=== PATIENT | male | born 1950 | race Caucasian/White ===

== ENCOUNTER → 2019-03-16 | Day surgery (SDC) | payer MEDICARE, OTHER ==
--- NOTE | 2019-03-15 12:56 | Pre Op History & Physical ---
DATE OF SURGERY: March 16, 2019. CHIEF COMPLAINT: Lesion in the right temporal area and left hairline. HISTORY OF PRESENT ILLNESS: This 68 years old male was noted to have lesion in the right temporal area and left hairline for a number of months. The lesion is increasing in size with irritation. The patient has a history of sun damage. He is being treated with topical medication with no improvement. REVIEW OF SYSTEMS: Showed no recent cardiovascular, respiratory, or GI problem. PAST MEDICAL HISTORY: The patient had type 2 diabetes, hypertension, and lumbar spine problem. PAST SURGICAL HISTORY: The patient has previous knee surgery, rotator cuff surgery, hernia repair, reflux surgery and tonsillectomy. ALLERGIES: HE HAS NO KNOWN ALLERGIES TO MEDICATIONS. MEDICATIONS: As per medicine list. SOCIAL HISTORY: He stopped smoking in 1998. He is a social drinker. FAMILY HISTORY: Noncontributory. PHYSICAL EXAMINATION: VITAL SIGNS: On examination, the patient's vital signs were within normal limits. HEENT: Ear exam show normal tympanic membranes bilaterally. Nasal exam showed hypertrophy of the inferior turbinates. MUSCULOSKELETAL: The patient has a lesion in the right temporal area about 2 x 1 cm and left hairline about 1 x 1 cm scaly in appearance, raised. Oropharynx and oral cavity show no obvious abnormality. NECK: No lymph node or thyroid palpable. CHEST: Clear. No abnormality. CARDIOVASCULAR: Showed S1 and S2. No murmur noted. PRINCIPAL ARCHITECT: Showed cranial nerve 2-12 were within normal limits. ASSESSMENT AND PLAN: Mr. Petersen has had a lesion in the right temporal and left hairline which has been irritating to the patient and increasing in size. The suggestion is excision of lesion with frozen section control and appropriate closure. The complication of procedure includes, but not limited to bleeding, infection, wound breakdown, poor cosmetic result, persistent recurrence of the lesion, facial nerve injury, hair loss. Alternative will be continued observation, excision of lesion in the office setting. The patient has elected to undergo surgical procedure. MD MYNOR Ley/TAMEKA /[id number]
[~2019-03-16] MED LIST: ASPIR 8181 MG PO; CRESTOR10 MG PO; DEXAMETHASONE SOD PHOS INJ 4 MG/ML VIAL ONE; FENTANYL CITRATE/PF 100MCG/2 ML INJ ONE; IBUPROFEN 800MG/ 250ML 250 ML IV ONE; LIDOCAINE 1% W/EPINEPHRINE 20 ML VIAL ONE; LIDOCAINE HCL 2% LOCAL INJ 5 ML SDV VIAL INJ ONE; LOSARTAN POTAS100 MG PO; METFORMIN HCL1000 MG PO; MIDAZOLAM HCL 2 MG/2 ML VIAL ONE; MULTI-VITAMIN1 EACH PO; NEOSTIGMINE 1 MG/ML 10ML VIAL ONE; ONDANSETRON HCL INJ 2MG/ML 2ML 2 MG/ML VIAL ONE; PROPOFOL IV EMULSION 10 MG/ML 20 ML VIAL ONE; SEVOFLURANE INHAL SOLN 250 ML PEN BTL ONE
--- OUTSIDE RECORDS SUMMARY | 2019-03-16 07:11 | XMS REPORT ---
Author [facility] Address Unknown Phone Unavailable Care Team Providers Care Clinical Director Name Role Phone Braxton Whitmore Unavailable Unavailable Ellis Carvalho Unavailable Unavailable Casey Leach Unavailable Unavailable [place], TERRESTRIAL ECOLOGIST-BC Maranda Unavailable Unavailable Kovacev, Karlos Unavailable Unavailable Problems This patient has no known problems. Allergies, Adverse Reactions, Alerts This patient has no known allergies or adverse reactions. Medications This patient has no known medications. Results Test Description Test Time Test Comments Text Results Atomic Results Result Comments Iac Wo Con W/ Mpr 2019-02-05 16:36:00 [place] [address] [facility] REPORT Name: ORION PETERSEN Acct Number: [id number] :1950 Age:68 Sex:M Ord Phys: Braxton Whitmore MD Unit Number: [id number] [facility] Dr: Status: REG REF RAD Exam Date: 02/05/19 EXAM DESCRIPTION: CT - Iac Wo Con W/ Mpr - 02/05/2019 3:25 pm CLINICAL HISTORY: H90.3 TECHNIQUE: Axial 1 millimeter thick images were obtained through the temporal bones. Sagittal and coronal reformatted images were generated and reviewed. All CT scans are performed using dose optimization technique as appropriate and may include automated exposure control or mA/KV adjustment according to patient size. FINDINGS: Left side mastoid air cells and middle ear are clear no tympanic membrane or ossicle abnormality. Vestibule, cochlear and semi circular canals are normal. No internal auditory canal or external auditory canal abnormality. Fluid and mucosal thickening changes partially opacify the inferior right-side mastoid air cells. Vestibule, cochlear and semicircular canals within normal limits. No abnormal sclerotic changes seen. No thickening or abnormality for right-sided tympanic membrane in the right-side ossicles are normal. Middle ear is fully aerated. Soft tissue lining of the external auditory canal is slightly more prominent than the left. This is a minimal differential. IMPRESSION: Fluid/mucosal thickening changes partially opacifying the right- side mastoid air cells. No right side abnormality seen to explain right- sided hearing loss. Soft tissues around the opening of the external auditory canal on the right is slightly more prominent. Significance is doubtful. Negative CT scan of the left-side IAC/temporal bone. Signed By: Jose Manuel Sharif MD Signed AT: 02/05/19 1637 Lumbar Spine 3 Views 2018-10-01 11:29:00 [place] [address] [facility] REPORT Name: ORION PETERSEN Acct Number: [id number] :1950 Age:67 Sex:M Ord Phys: Ellis Carvalho MD Unit Number: [id number] [facility] [address]: Status: REG REF RAD Exam Date: 10/01/18 EXAM DESCRIPTION: RAD - Lumbar Spine 3 Views - 10/01/2018 11:22 am CLINICAL HISTORY: M54.5 Radiculopathy COMPARISON: No comparisons FINDINGS: Vertebral body heights appear maintained. No compression fracture noted. Prominent degenerative changes present at L2-3 with vacuum disc degeneration. Disc thinning with endplate osteophytes are present throughout the lumbar spine. Facet hypertrophy is noted at L4-5 and L5-S1. IMPRESSION: Moderate multilevel degenerative spondylosis of the lumbar spine is present. Signed By: Antwan Granados MD Signed AT: 10/01/18 1129 DEXA, BONE DENSITY AXIAL SKELE 2018-07-30 00:00:00 [place] [address] [facility] REPORT Name: ORION PETERSEN Acct Number: [id number] :1950 Age:67 Sex:M Ord Phys: Ellis Carvalho MD Unit Number: [id number] [facility] [address]: Status: REG REF RAD Exam Date: 07/28/18 Indication: screening for osteoporosis; Clinical Information Provided by Patient: Is being treated for Osteoporosis Has 3 or more alcoholic drinks per day Has used the following medications: Vitamin D, Calcium Patient maximum height was 69.5 Drinks caffeinated beverages Bone Density: Exam date 07/28/2018 BMD Region (g/cm2) T- score Z- Score Classification AP Spine (L1-L4) 1.309 2.0 2.8 Normal Femoral Neck (Left) 0.891 -0.3 0.8 Normal Total Hip (Left) 1.147 0.8 1.3 Normal World Health Organization criteria for BMD imp ression classify patients as normal (T-score at or above -1.0), Osteopenia (T- score between -1.0 and -2.5), or Osteoporosis (T-score at or below -2.5 10- year Fracture Risk: FRAX not reported because: All T-scores for Spine Total, Hip Total, Femoral Neck at Or above -1.0. Treated for osteoporosis Impression: The patient has normal bone mass. The patient has risk factors, including: excessive alcohol use. Discussion: It is important to ask patients whether they are taking their medications and to encourage continued and appropriate compliance with their osteoporosis therapies to reduce fracture risk. It is also important to review their risk factors and encourage appropriate calcium and vitamin D intakes, exercise, fall prevention necessary, to reassess this patient s status. Follow-Up: Consider repeating this study in 2 years or sooner if there is some new clinical indication. Reported by: Dr. Watson on 07/28/2018 at 10:01:00 AM. Signed By: Stepan Watson MD Signed AT: 08/04/18 1418 Hemoglobin A1c/Hemoglobin.total in Blood 2018-05-25 12:48:00 Hemoglobin A1c/Hemoglobin.total in Blood (test chlu=6595-7) 6.5 % 4.2-6.3 Comprehensive metabolic wrnli1800-84-52 12:18:00* Test Item Value Reference Range Comments Serum or plasma sodium measurement (moles/volume) (test zohf=7768-1) 138 mmol/L 136-145 Potassium [Moles/volume] in Serum or Plasma (test bvsy=3400-5) 3.8 mmol/L 3.5-5.1 Chloride [Moles/volume] in Serum or Plasma (test zrvu=3626-7) 102 mmol/L 98-107 Carbon dioxide, total [Moles/volume] in Serum or Plasma (test fupc=0498-0) 30 mmol/L 21-32 Glucose [Mass/volume] in Serum or Plasma (test kqdp=7290-4) 109 mg/dL 74-106 Urea nitrogen [Mass/volume] in Serum or Plasma (test ramh=4325-6) 14 mg/dL 7-18 Creatinine [Mass/volume] in Serum or Plasma (test zmqf=8289-0) 0.80 mg/dL 0.55-1.3 Glomerular Filtration Rate (test code=GFR) > 90 =/>90 FOR CHRONIC KIDNEY DISEASE: GFR STAGE DESCRIPTION=/>90 STAGE 1 NORMAL--OR-- MINIMAL KIDNEY DAMAGE WITH NORMAL GFR 60-89 STAGE 2 MILD DECREASE IN GFR 30-59 STAGE 3 MODERATE DECREASE IN GFR 15-29 STAGE 4 SEVERE DECREASE IN GFR <15 STAGE 5 KIDNEY FAILURE The Glomerular Filtration Rate (GFR) has been calculated using the IDMS-Traceable MDRD Study Equation. Aspartate aminotransferase [Enzymatic activity/volume] in Serum or Plasma by With P-5 (test flvo=74929-2) 18 U/L 15-37 Alanine aminotransferase [Enzymatic activity/volume] in Serum or Plasma by With P-5'- (test lqyi=0732-6) 34 U/L 12-78 Alkaline phosphatase [Enzymatic activity/volume] in Serum or Plasma (test xjee=4023-5) 76 U/L 45-117 Bilirubin.total [Mass/volume] in Serum or Plasma (test yktr=1432-5) 0.5 mg/dL 0.2-1.0 Calcium [Mass/volume] in Serum or Plasma (test jqlo=85166-2) 9.3 mg/dL 8.5-10.1 Protein [Mass/volume] in Serum or Plasma (test ugzs=5936-9) 8.0 g/dL 6.4-8.2 Albumin [Mass/volume] in Serum or Plasma by Bromocresol purple (BCP) dye binding meth (test ergc=44202-1) 4.4 g/dL 3.4-5.0 Globulin (test code=GLOB) 3.6 g/dL 2.3-3.5 Albumin/Globulin Ratio (test code=A/G) 1.2 1.1-1.8 Lipid egdgamk6146-33-09 12:18:00* Test Item Value Reference Range Comments Cholesterol [Mass/volume] in Serum or Plasma (test urqk=3222-5) 110 mg/dL <200 Triglyceride [Mass/volume] in Serum or Plasma (test kluy=2865-3) 136 mg/dL <150 Cholesterol in HDL [Mass/volume] in Serum or Plasma (test xwbq=2702-6) 32 mg/dL 40-60 Serum or plasma cholesterol in LDL measurement by calculation (mass/volume) (test axiw=57797-3) 51 <130 This LDL is a calculated result; a more accurate analysis can be performed using the direct LDL methodology. Total cholesterol/cholesterol in HDL (percentile) (test kjgo=2844-0) 3.44 LIPID RISK RATIOS: 1/2 AVERAGE AVERAGE 2X AVERAGE 3X AVERAGE ------- MALE 3.43 4.97 9.55 23.39 FEMALE 3.27 4.44 7.05 11.04 Microalbumin [Mass/volume] in Boggy5054-88-02 12:16:00* Test Item Value Reference Range Comments Microalbumin [Mass/volume] in Urine (test prao=76779-6) 1.0 mg/dL < 1.9 Thoracic Spine Ap/Bul5312-77-81 12:46:00[place] [address] [facility] REPORT Name: ORION PETERSEN Acct Number: [id number] :1950 Age:67 Sex:M Ord Phys: Casey Leach MD Unit Number: [id number] [facility] [address]: Status: REG REF RAD Exam Date: 02/23/18 EXAM DESCRIPTION: RAD - Thoracic Spine Ap/Lat - 02/23/2018 11:36 am CLINICAL HISTORY: Back pain FINDINGS: No fracture is seen. No dislocation is noted Kyphosis involves the thoracic spine. The bones are osteoporotic. Moderate spondylosis involves the mid thoracic spine consisting of disc space narrowing and osteophytes. Signed By: Stepan Watson MD Signed AT: 02/23/18 1246 Miscellaneous Test Tab9844-50-89 14:44:00* Test Item Value Reference Range Comments Miscellaneous Test Lab (test code=MISC) SENT PSA FREE AND TOTAL 1 LG RED Specimen sent to Reference Laboratory. Results to follow. Scrotum Mrbjciywj7024-00-42 13:35:00[place] [address] [facility] REPORT Name: ORION PETERSEN Acct Number: [id number] :1950 Age:67 Sex:M Ord Phys: Maranda Guillen CDE Unit Number: [id number] [facility] [address]: Status: REG REF RAD Exam Date: 02/02/18 EXAM DESCRIPTION: US - Scrotum Testicles - 02/02/2018 1:07 pm CLINICAL HISTORY: Testicular pain COMPARISON: None FINDINGS: The right testicle measures 4.6 x 3.1 x 3.1 centimeters. The left testicle measures 5 x 3.1 x 3.2 centimeters. The echotexture of each testicle is homogeneous with normal appearing intratesticular blood flow bilaterally The epididymides are normal in size and blood flow. A large right hydrocele is seen IMPRESSION: Large right hydrocele Signed By: Stepan Watson MD Signed AT: 02/02/18 1335 53624--NCHF PATH LEVEL 29378-82-38 08:39:00 RUN DATE: 02/02/18 [facility] LAB*Abida tim* PAGE 1 RUN TIME: 838 Specimen Inqu iry PATIENT: ORION PETERSEN ACC T: [id number] LOC: OR U: [id number] AGE/SX: 67/M ROOM: RE01/30/18[facility] DR: Karlos Steve MD : 1950 BED: DIS: STATUS: [facility] TLOC: SP EC : [id number] RECD: 01/30/18 STATUS: [place] NUM: [id number] SUSANA: 01/30/18-1041 [facility] DR: Jamir Steve MD ENTERED: 01/30/184 SP TYPE: INPATIENT [facility] DR: ORDERED: [id number] CODES: COLON, NOS PROCEDURES: 06110 (01/30/18-1 424) TISSUES: COLON, NOS - RANDOM COLON BIOPSY CLINICAL HISTOR Y Pre-op Diagnosis: Colon cancer screening.Post-op Diagnosis: Divertic ulosis, hemorrhoid. DIAGNOSIS Random colon, biopsy: - No signific ant pathologic changes CPT 60263 GROSS DESCRIPTION The case is received in one part, labeled with the patient's name "Orion Petersen" and accession#[id number] 1 accompanied by a requisition slip labeled with the patient's name and the same accession number. The specimen is received in formalin, labeled "random colon bi opsy" and consists of afragment of harris tissue measuring 1 cm submitted entirely in a single cassette. (ASW) MICROSCOPIC DESCRIPTION Sections show fragments of benign colonic mucosa. The lamina propria is somewhat edematous.No significa nt acute inflammation is seen. No crypt abscesses or granulomas are seen. Noincr eased intraepithelial lymphocytes are seen. There is no evidence of malignancy.- Signed (signature on file) Renae John MD 0839 END OF REPORT Glucose blood olmjxussmhc8540-54-37 09:09:00* Test Item Value Reference Range Comments Glucose blood fingerstick (test yues=NPS9022) 88 mg/dL 65-120 Comprehensive metabolic ppbyc4233-41-88 14:54:00* Test Item Value Reference Range Comments Sodium level (test wavy=NOS9824) 138 meq/L 135-145 4.1 Chloride measurement (test ggvz=OEX7974) 105 meq/L 101-111 Bicarbonate (test code=CO2) 27 meq/L 21-31 Glucose measurement (test hnge=LGN2890) 104 mg/dL 65-120 ADA Clinical Practice Recommendation: <100 mg/dl=Normal Fasting Glucose BUN Bld-mCnc (test itxj=2536-7) 14 mg/dL 6-20 Creatinine measurement (test jynx=QBU3078) 0.78 mg/dL 0.61-1.24 The creatinine method used has been calibrated to be traceable to Isotope dilution Mass Spectrometry (IDMS). For more information: www.nkdep.nih.gov Estimated glomerular filtration rate (GFR) determination (test dsup=15839-0) >90 mL =/>90 FOR CHRONIC KIDNEY DISEASE: GFR STAGE DESCRIPTION=/>90 STAGE 1 NORMAL--OR-- MINIMAL KIDNEY DAMAGE WITH NORMAL GFR 60-89 STAGE 2 MILD DECREASE IN GFR 30-59 STAGE 3 MODERATE DECREASE IN GFR 15-29 STAGE 4 SEVERE DECREASE IN GFR <15 STAGE 5 KIDNEY FAILURE The Glomerular Filtration Rate (GFR) has been calculated using the IDMS-Traceable MDRD Study Equation. Aspartate aminotransferase (AST) measurement (test bxyj=KKI8162) 19 [iU]/L 10-42 ALT/SGPT (test code=SGPT) 23 [iU]/L 10-60 Alkaline Phosphatase (test code=ALK) 69 [iU]/L 42-121 Bilirubin total (test qwvg=MOI3473) 0.8 mg/dL 0.3-1.2 Calcium Level (test code=CA) 9.3 mg/dL 8.5-10.5 Serum total protein measurement (test ouxk=6887-7) 6.7 g/dL 6.0-8.3 Albumin measurement (test hmso=MCE9607) 4.2 g/dL 3.2-5.5 Globulin (test code=GLOB) 2.5 g/dL 2.3-3.5 Albumin/Globulin Ratio (test code=A/G) 1.7 1.1-1.8 Lipid jbpgcig8968-40-18 14:54:00* Test Item Value Reference Range Comments Cholesterol measurement (test evhv=AZN9253) 198 mg/dL <200 154 HDL Cholesterol (test code=HDL) 32 mg/dL 27-67 Serum or plasma cholesterol in LDL measurement by calculation (mass/volume) (test pmdi=43698-7) 135 <130 This LDL is a calculated result; a more accurate analysis can be performed using the direct LDL methodology. Total cholesterol/cholesterol in HDL (percentile) (test hysz=0209-6) 6.19 LIPID RISK RATIOS: 1/2 AVERAGE AVERAGE 2X AVERAGE 3X AVERAGE ------- MALE 3.43 4.97 9.55 23.39 FEMALE 3.27 4.44 7.05 11.04 Thyroid Stimulating Ynbcadf7847-35-18 14:54:00* Test Item Value Reference Range Comments Thyroid Stimulating Hormone (test code=TSH) 1.66 [iU]/L 0.34-5.60 Hemoglobin A1c ctedseaayql4245-16-81 14:08:00* Test Item Value Reference Range Comments Hemoglobin A1c measurement (test jbmh=53763-2) 5.7 % 4-6.0 Complete blood count (CBC) with automated white blood cell (WBC) differential 2017-11-28 14:01:00* Test Item Value Reference Range Comments White blood cell count (test dbiu=HZL6625) 6.8 4.3-10.9 Blood erythrocytes count (number/volume) (test ftkm=39847-3) 5.04 M/ul 4.33-5.43 Hemoglobin measurement (test dbcc=XWN4981) 15.3 g/dL 13.6-17.9 Blood hematocrit (volume fraction) (test avcn=08884-8) 45.7 % 39.6-49.0 MCV (test oome=63341-8) 90.7 fL 80-100 MCH (test twez=46288-4) 30.3 pg 27.0-35.0 MCHC (test code=MCHC) 33.4 g/dL 32.0-36.0 Platelets (test code=PLT) 242 152-406 Red Cell Distribution Width (test code=RDW) 14.5 % 12.1-15.2 Blood platelet mean volume (test csqm=98046-4) 8.7 fL 7.6-11.3 Neutrophils % (test code=NAJMA%) 45.9 % 41.7-73.7 Lymphocytes/leuk NFr Bld (test cxur=58307-5) 38.3 % 15.3-44.8 Monocyte percentage (test guxh=9172-4) 8.8 % 3.3-12.3 Eosinophil % (test siwz=810-9) 6.3 % 0-4.4 Basophil % (test avic=18490-4) 0.7 % 0-1.3 Absolute neutrophil count (test zkyy=634-3) 3.1 1.8-8.0 Absolute lymphocyte count (test tpxe=02084-9) 2.6 0.7-4.9 Absolute monocyte count (test iqsg=158-7) 0.6 0.1-1.3 Absolute Eosinophils (test code=EOA) 0.4 0-0.5 Absolute Basophils (test code=BASA) 0.0 0-0.5
[2019-03-16 11:05] VITALS: BP 151/89
--- NOTE | 2019-03-16 14:23 | Operative Report ---
DATE OF PROCEDURE: 03/16/2019 SURGEON: Braxton Whitmore MD CHIEF COMPLAINT: Lesion in the right temporal area and left hairline. POSTOPERATIVE DIAGNOSIS: Lesion in the right temporal area and left hairline. PROCEDURE: Excision of lesion right temporal area of 3 x 2 cm and left hairline lesion of 2 x 1 cm with appropriate closure. ANESTHESIA: Dr. Terrell. INDICATIONS: This 68-year-old male was noted to have a lesion in the right temporal area and left hairline, which has been increasing in size and irritating to the patient. These has been there for number of years. On examination, the patient was noted to have a 2 cm lesion in the right temporal area, raised papillary in appearance. Another lesion in the left hairline about 1 cm raised papillary in appearance in the left hairline. It was decided excision of these lesion with appropriate closure and other necessary procedure will be beneficial for him. DESCRIPTION OF PROCEDURE: The patient was taken to the operating room, put under general anesthesia, and LMA airway created. The area was prepped and draped in a sterile fashion. Both lesions were injected with 1% Xylocaine with 1:100,000 epinephrine for hemostasis. The right temporal area was approached first. The area was marked out and excised along the relaxed skin tension line. The area was excised. Size of the defect was about 3 x 2 cm. A superior and inferior flap were elevated in a subcutaneous plane. This was advanced in the midline. Any bleeding area was controlled using the bipolar cautery. The flap was advanced and closed on itself using interrupted 4-0 prolene suture. The left hairline lesion was approached. The area was excised. The size of the defect was about 2 x 1 cm. The anterior and posterior flap were elevated in the subcutaneous plane. Hemostasis during the elevation and the excision was achieved using the bipolar cautery. The flap was advanced in the midline and closed on itself using 4-0 Prolene suture in an interrupted fashion. The patient tolerated the above procedure well with minimal blood loss. He was able to be transferred to the recovery room in stable condition. Braxton Whitmore MD DKH/MODL /[id number]
== END | disposition home or self-care (01) ==
LOC: OR 07:07
PROVIDERS: ATTEND Otolaryngology Otolaryngology/Facial Plastic Surgery
DX: L82.1 Other seborrheic keratosis (principal); E11.9 Type 2 diabetes mellitus without complications; I10 Essential (primary) hypertension; I25.10 Atherosclerotic heart disease of native coronary artery without angina pectoris; Z79.82 Long term (current) use of aspirin; Z79.84 Long term (current) use of oral hypoglycemic drugs; Z98.61 Coronary angioplasty status
CPT/HCPCS: 14020 ×2; 36415; 82948; 88305; J1100; J2001; J2250; J2405; J2704; J2710; J3010; 88304